=== PATIENT | male | born 1985 | race Asian ===

== ENCOUNTER 2020-01-25 19:03 | Outpatient (CLI) | payer OTHER | END 2020-01-25 19:04 | disposition home or self-care (01) | LOC: COV 19:03 | PROVIDERS: ATTEND Family Medicine | DX: R05 Cough (principal); R06.02 Shortness of breath; R53.83 Other fatigue; J02.9 Acute pharyngitis, unspecified; R43.9 Unspecified disturbances of smell and taste; R09.81 Nasal congestion; Z20.828 Contact with and (suspected) exposure to other viral communicable diseases ==

== ENCOUNTER 2020-05-05 13:00 | Outpatient (CLI) | payer OTHER | END 2020-05-05 13:01 | disposition home or self-care (01) | LOC: COV 13:00 | PROVIDERS: ATTEND Family Medicine | DX: Z20.828 Contact with and (suspected) exposure to other viral communicable diseases (principal) ==

== ENCOUNTER 2023-08-16 15:48 | Emergency (ER) | payer OTHER ==
[2023-08-16 17:09] LABS: VBG PCO2 41.1 mmHg (41-51); VBG PH 7.322 (7.31-7.41)
[2023-08-16 17:10] LABS: BASOPHILS # (AUTO) 0.1 10^3/uL (0.0-0.1); BASOPHILS % (AUTO) 0.7 %; EOSINOPHILS # (AUTO) 0.2 10^3/uL (0.0-0.7); EOSINOPHILS % (AUTO) 1.5 %; HCT - HEMATOCRIT 49.5 % (42.0-52.0); HGB - HEMOGLOBIN 17.4 g/dL (14.0-18.0); LYMPHOCYTES # (AUTO) 2.5 10^3/uL (1.5-3.5); LYMPHOCYTES % (AUTO) 23.8 %; MEAN CORPUSCULAR HEMOGLOBIN 29.8 pg (27.0-31.0); MEAN CORPUSCULAR HGB CONC 35.2 g/dL (32.0-36.0); MEAN CORPUSCULAR VOLUME 84.8 fL (80.0-94.0); MEAN PLATELET VOLUME 10.7 fL (7.4-11.4); MONOCYTES # (AUTO) 0.6 10^3/uL (0.0-1.0); MONOCYTES % (AUTO) 5.7 %; NEUTROPHILS # (AUTO) 7.1 10^3/uL (1.5-6.6); NEUTROPHILS % (AUTO) 67.9 %; PLT - PLATELET COUNT 424 10^3/uL (130-450); RED BLOOD COUNT 5.84 10^6/uL (4.70-6.10); RED CELL DISTRIBUTION WIDTH 12.1 % (12.0-15.0); VBG BASE EXCESS -4.9 mmol/L (-2 - +2); VBG HCO3 20.8 mmol/L (23-28); VBG OXYGEN SATURATION 31.7 % (60-80); VBG TOTAL CO2 22.1 mmol/L (24-29); WHITE BLOOD COUNT 10.4 x10^3/uL (4.8-10.8)
[2023-08-16 17:15] LABS: KETONES, SERUM (ACETEST) SMALL (NEGATIVE)
[2023-08-16 17:24] LABS: PHOSPHORUS 5.8 mg/dL (2.5-5.0)
[2023-08-16 17:26] LABS: ALBUMIN 4.7 g/dL (3.2-5.5); ALBUMIN/GLOBULIN RATIO 1.3 (1.0-2.2); ALKALINE PHOSPHATASE 114 IU/L (42-121); ALT ALANINE AMINOTRANSFERASE 41 IU/L (10-60); AST ASPARTATE AMINOTRANSFERASE 14 IU/L (10-42); BILIRUBIN,TOTAL 0.8 mg/dL (0.2-1.0); BUN - BLOOD UREA NITROGEN 28 mg/dL (6-20); CALCIUM 10.4 mg/dL (8.5-10.3); CARBON DIOXIDE - CO2 23 mmol/L (21-32); CHLORIDE 92 mmol/L (101-111); CREATININE 1.2 mg/dL (0.6-1.3); GFR - MDRD 69 (>89); GLUCOSE 445 mg/dL (74-104); POTASSIUM 4.7 mmol/L (3.5-4.5); SODIUM 132 mmol/L (135-145); TOTAL PROTEIN 8.2 g/dL (6.4-8.9)
[2023-08-16] MEDS: SODIUM CHLORIDE 0.9% 1,000 ML IV STA ×2 (19:24→20:41)
[2023-08-16] MEDS: INSULIN REGULAR HUMAN 300 UNIT/3 ML VIAL IVP STA ×3 (19:24→22:03)
--- NOTE | 2023-08-16 20:25 | ED Physician Documentation ---
History of Present Illness - Stated complaint Stated Complaint: HIGH BLOOD SUGAR - Chief complaint Chief Complaint: General - History obtained from History obtained from: Patient - Additonal information Additional information: The patient comes to the emergency department chief complaint of swollen dry tongue for the past couple of weeks. He states he was seen at an urgent care in [place] and they told him that "it looked like strep" and started him on antibiotics. He states that was 2 days ago and he has not noticed any difference and if anything, the symptoms of gotten worse. He went to urgent care in [place] this morning and was told actually looked like he had thrush and nystatin was prescribed. The patient really has not had any other symptoms, but he states they checked a blood sugar and it was over 400 so they told him to come here. Patient has no history of diabetes. Nobody in his family has diabetes. He denies any polydipsia or polyuria independent of the need to drink water because his tongue feels swollen and dry all the time. He states that his tongue and throat of hurts so much that he really cannot swallow very well as far as eating food. No other complaints at this time. No nausea or vomiting. No fevers. No cough. The patient is otherwise healthy. PD PAST MEDICAL HISTORY - Past Medical History Past Medical History: Yes Cardiovascular: None Respiratory: None Neuro: None GI: None : None HEENT: None Psych: None Musculoskeletal: None Derm: None - Past Surgical History Past Surgical History: Yes Ortho: Spine surgery - Present Medications Home Medications: Ambulatory Orders Medication Instructions Recorded Confirmed metFORMIN [Glucophage] 850 mg PO TIDWM #90 tablet 08/16/23 - Allergies Allergies/Adverse Reactions: Allergies Allergy/AdvReac Type Severity Reaction Status Date / Time No Known Drug Allergies Allergy Verified 08/16/23 16:47 - Social History Does the pt smoke?: No Smoking Status: Never smoker Does the pt drink ETOH?: No Does the pt have substance abuse?: No - Immunizations Immunizations are current?: Yes PD ED PE NORMAL - Vitals Vital signs reviewed: Yes - General General: Alert and oriented X 3, No acute distress, Well developed/nourished - HEENT HEENT: Atraumatic, PERRL, EOMI, Moist mucous membranes, Other (Marked thrush of tongue with beefy red mucosa of the rest of the oropharynx.) - Neck Neck: Supple, no meningeal sign - Cardiac Cardiac: No murmur, Other (Regular rhythm, mildly tachycardic rate.) - Respiratory Respiratory: No respiratory distress, Clear bilaterally - Abdomen Abdomen: Soft, Non tender, Non distended - Derm Derm: Normal color, Warm and dry, No rash - Extremities Extremities: No deformity, No edema - Psych Psych: Normal mood, Normal affect Results - Vitals Vitals: Vital Signs - 24 hr 08/16/23 08/16/23 08/16/23 16:49 19:42 21:23 Temperature 36.7 C 37.2 C Heart Rate 103 H 105 H 88 Respiratory 18 16 16 Rate Blood Pressure 122/96 H 151/98 H 141/92 H O2 Saturation 98 99 98 08/16/23 23:11 Temperature Heart Rate 88 Respiratory 16 Rate Blood Pressure 147/102 H O2 Saturation 96 Oxygen O2 Source Room air - Labs Labs: Laboratory Tests 08/16/23 08/16/23 08/16/23 17:05 17:05 17:05 WBC 10.4 RBC 5.84 Hgb 17.4 Hct 49.5 MCV 84.8 MCH 29.8 MCHC 35.2 RDW 12.1 Plt Count 424 MPV 10.7 Neut # (Auto) 7.1 H Lymph # (Auto) 2.5 Esmeralda # (Auto) 0.6 Eos # (Auto) 0.2 Baso # (Auto) 0.1 Absolute Nucleated RBC 0.00 Nucleated RBC % 0.0 VBG pH VBG pCO2 VBG pO2 VBG HCO3 VBG Total CO2 VBG O2 Saturation VBG Base Excess Sodium 132 L Potassium 4.7 H Chloride 92 L Carbon Dioxide 23 Anion Gap 17.0 H BUN 28 H Creatinine 1.2 Estimated GFR (MDRD) 69 L Glucose 445 H POC Whole Bld Glucose Estimat Average Glucose 378 H Hemoglobin A1c % 14.8 H Calcium 10.4 H Phosphorus 5.8 H Magnesium 2.0 Total Bilirubin 0.8 AST 14 ALT 41 Alkaline Phosphatase 114 Total Protein 8.2 Albumin 4.7 Globulin 3.5 Albumin/Globulin Ratio 1.3 Serum Ketones SMALL H 08/16/23 08/16/23 08/16/23 17:05 20:09 21:36 WBC RBC Hgb Hct MCV MCH MCHC RDW Plt Count MPV Neut # (Auto) Lymph # (Auto) Esmeralda # (Auto) Eos # (Auto) Baso # (Auto) Absolute Nucleated RBC Nucleated RBC % VBG pH 7.322 VBG pCO2 41.1 VBG pO2 19.0 L VBG HCO3 20.8 L VBG Total CO2 22.1 L VBG O2 Saturation 31.7 L VBG Base Excess -4.9 L Sodium Potassium Chloride Carbon Dioxide Anion Gap BUN Creatinine Estimated GFR (MDRD) Glucose POC Whole Bld Glucose 412 H 338 H Estimat Average Glucose Hemoglobin A1c % Calcium Phosphorus Magnesium Total Bilirubin AST ALT Alkaline Phosphatase Total Protein Albumin Globulin Albumin/Globulin Ratio Serum Ketones 08/16/23 22:36 WBC RBC Hgb Hct MCV MCH MCHC RDW Plt Count MPV Neut # (Auto) Lymph # (Auto) Esmeralda # (Auto) Eos # (Auto) Baso # (Auto) Absolute Nucleated RBC Nucleated RBC % VBG pH VBG pCO2 VBG pO2 VBG HCO3 VBG Total CO2 VBG O2 Saturation VBG Base Excess Sodium Potassium Chloride Carbon Dioxide Anion Gap BUN Creatinine Estimated GFR (MDRD) Glucose POC Whole Bld Glucose 260 H Estimat Average Glucose Hemoglobin A1c % Calcium Phosphorus Magnesium Total Bilirubin AST ALT Alkaline Phosphatase Total Protein Albumin Globulin Albumin/Globulin Ratio Serum Ketones PD Medical Decision Making - ED course Complexity details: reviewed results, re-evaluated patient, considered differential, d/w patient ED course: The patient was treated with 2 L of IV fluid and serial doses of regular insulin, plus a dose of metformin. He was found to have an anion gap of 17, normal pH, and small amount of ketones. The patient's fingerstick glucose did steadily trend down with each dose of insulin until the final number was about 260. I felt the patient was stable for discharge. I have prescribed metformin for him and have urged him to see his primary care physician as soon as possible to determine a good long-term plan for this patient's diabetes management. We have discussed the usual indications for return. Departure - Departure Disposition: 01 Home, Self Care Clinical Impression: Diabetes mellitus, new onset, Hyperglycemia, Candidiasis of mouth Condition: Stable Instructions: ED Diet Diabetic, ED Hyperglycemia New Susp Diabetes Prescriptions: metFORMIN [Glucophage] 850 mg PO TIDWM #90 tablet Comments: Your blood sugar was quite high tonight and likely, has been running at that level for some time. You have been given medication to bring your blood sugar down tonight, both in the form of insulin and in the form of an oral medication called metformin, as we have discussed. Your blood sugar is still elevated but is coming down, and at night, we do not want to go too low. You have been given a prescription for the oral diabetes medication to help keep your sugars under control, And this has been electronically transmitted to the [facility] pharmacy in [place]. You may pick it up in the morning as you have already been given doses of the same medication for tonight. It is extremely important that you follow-up as soon as possible with your primary doctor to discuss a more permanent regimen for your blood sugar. You also need to get set up with blood sugar testing equipment so that you can keep tabs on how your sugars are doing at home. We are not able to provide this from the ER but your primary doctor can get you set up with this as well. For now, try to eat a wholesome diet and avoid simple carbohydrates, sugary foods, and sugary drinks. As far as your tongue discomfort, you appear to have thrush, which is a yeast infection of the mouth and throat. You have already been prescribed the nystatin, the liquid antifungal medicine that is used to treat thrush. Please begin taking it as soon as you pick it up from the pharmacy. It will most likely take a few days for your tongue to really feel better, but you should start noticing improvement. Please be sure to finish the entire course of nystatin to completely eradicate the infection. Forms: PCP List Discharge Date/Time: 08/16/23 22:55
[2023-08-16] MEDS: metFORMIN 500 MG TABLET PO STA (20:44)
[2023-08-16 20:54] LABS: ESTIMATED AVERAGE GLUCOSE 378 mg/dL (70-100); HEMOGLOBIN A1c% 14.8 % (4.27-6.07)
[2023-08-16 23:12] VITALS: BP 147/102; O2SAT 96
== END 2023-08-16 22:55 | disposition home or self-care (01) ==
LOC: ED 15:48
DX: E11.65 Type 2 diabetes mellitus with hyperglycemia (principal); B37.0 Candidal stomatitis; Z79.84 Long term (current) use of oral hypoglycemic drugs
CPT/HCPCS: 36415; 80053; 82009; 82803; 83036; 83735; 84100; 85025; 96360; 96361; 99283; 99284; A9270; J1815